=== PATIENT | female | born 1990 | race Hispanic/Latino ===

== ENCOUNTER 2019-07-21 13:13 | Emergency (ER) | payer OTHER ==
--- NOTE | 2019-07-21 13:18 | Event Note ---
ED Screening Note ED Screening Note: 29 yo with hx of MS, 9 weeks , vaginal bleeding This initial assessment/diagnostic orders/clinical plan/treatment(s) is/are subject to change based on patients health status, clinical progression and re- assessment by fellow clinical providers in the ED. Further treatment and workup at subsequent clinical providers discretion. Patient/guardian urged not to elope from the ED as their condition may be serious if not clinically assessed and managed. Initial orders include: labs US
[2019-07-21 14:44] LABS: BUN/Creatinine Ratio 10; Blood Urea Nitrogen 5 mg/dL (7-17); Calcium 8.8 mg/dL (8.4-10.2); Hemolysis Index 5
[2019-07-21 14:46] LABS: Basophils # (Auto) 0.1 K/mm3 (0.0-0.1); Eosinophils # (Auto) 0.1 K/mm3 (0.0-0.4); Eosinophils % (Auto) 1.2 % (0.0-4.3); Monocytes # (Auto) 0.4 K/mm3 (0.0-0.8); Monocytes % (Auto) 3.7 % (0.0-7.3)
--- NOTE | 2019-07-21 14:54 | Ultrasound Report ---
OB Ultrasound HISTORY: vaginal bleeding. TECHNIQUE: Grayscale and color imaging performed. COMPARISON: No recent comparison exam is available. FINDINGS: Transabdominal and endovaginal imaging was performed. There is a single intrauterine gestation with crown-rump length of 1.1 cm corresponding with an EGA o f 7 weeks and 2 days. Mean sac diameter is 2.4 cm corresponding with an EGA of 7 weeks and 3 days. Ov erall EGA is 7 weeks and 3 days by ultrasound with estimated delivery date of 03/05/2020. This closel y corresponds with the clinical gestational age of 7 weeks and 4 days. There is a pole and a yo lk sac with heart rate of 147 bpm. The gestational sac is in the uterine fundal region. No free fluid identified. Left ovary is not visualized. The right ovary is normal in size and contains a likely fu nctional cyst measuring 1.5 cm. IMPRESSION: 1. Single viable intrauterine gestation as above. 2. Likely functional cyst in the right ovary. 3. Left ovary not visualized. Signer Name: Hakeem Hauser MD Signed: 07/21/2019 2:49 PM Workstation Name: [id number]
[2019-07-21 15:09] LABS: Hematocrit 36.4 % (30.3-42.9); Hemoglobin 12.2 gm/dl (10.1-14.3); Mean Corpuscular HGB Conc 34 % (30-34); Mean Corpuscular Volume 75 fl (79-97); Platelet Count 231 K/mm3 (140-440); Red Blood Count 4.82 M/mm3 (3.65-5.03); Red Cell Distribution Width 16.3 % (13.2-15.2)
[2019-07-21 16:29] LABS: Basophils % (Manual) 0 % (0.0-1.8); Total Cells Counted 100
[2019-07-21 16:30] LABS: Anisocytosis 1+; Hypochromasia 1+
--- NOTE | 2019-07-21 16:35 | Emergency Department Report ---
ED Female HPI - General Chief complaint: Vaginal Bleeding Stated complaint: 7WKS PREG AND BLEEDING Time Seen by Provider: 07/21/19 14:03 Source: patient Mode of arrival: Ambulatory Limitations: No Limitations - History of Present Illness Initial comments: 39-year-old obese female presents emerged department complaining of having some mild of vaginal bleeding which began after intercourse about 2 weeks ago. She states that the bleeding stopped about 1 week ago and then restarted on yesterday and is relatively painless but she wanted to evaluate for the health of her MD Complaint: vaginal bleeding -: Gradual Location: suprapubic Radiation: non-radiating Severity: mild Improves with: none Worsens with: intercourse Are you Now?: Yes Associated Symptoms: vaginal bleeding - Related Data Sexually active: Yes Home Medications Medication Instructions Recorded Confirmed Last Taken Valacyclovir HCl [Valtrex] 500 tab PO DAILY 09/21/14 09/30/14 09/21/14 09:00 1 Previous Rx's Medication Instructions Recorded Last Taken Type Pnv 21/Iron Ps,Heme Ppep/Folic 1 each PO QDAY #30 tablet 02/19/14 09/21/14 09:00 Rx [Prefera Ob Tablet] 1 oxyCODONE /ACETAMINOPHEN [Percocet 1 tab PO Q4HR PRN #30 tablet 10/02/14 Unknown Rx 5/325] Docusate Sodium [Colace] 100 mg PO BID PRN #60 capsule 10/03/14 Unknown Rx Ferrous Sulfate [Feosol 325 MG tab] 325 mg PO BID #60 tablet 10/03/14 Unknown Rx Cyclobenzaprine [Flexeril 10 MG 10 mg PO Q8H PRN #21 tablet 12/31/14 Unknown Rx TAB] Diclofenac Dr [Gilbert Mckay] 75 mg PO Q12H #20 tablet 12/31/14 Unknown Rx Acetaminophen/Codeine [Tylenol 1 tab PO Q6H PRN #20 tab 02/24/15 Unknown Rx /Codeine # 3 tab] Clindamycin [Clindamycin CAP] 300 mg PO Q6H #40 capsule 02/24/15 Unknown Rx Ibuprofen [Motrin 800 MG tab] 800 mg PO TID PRN #30 tablet 02/24/15 Unknown Rx Allergies Allergy/AdvReac Type Severity Reaction Status Date / Time No Known Allergies Allergy Verified 07/21/19 13:15 ED Review of Systems ROS: Stated complaint: 7WKS PREG AND BLEEDING Other details as noted in HPI Comment: All other systems reviewed and negative ED Past Medical Hx - Past Medical History Hx Hypertension: No Hx Congestive Heart Failure: No Hx Diabetes: No Hx Deep Vein Thrombosis: No Hx Renal Disease: No Hx Sickle Cell Disease: No Hx Seizures: No Hx Asthma: No Hx COPD: No Hx HIV: No Additional medical history: Vaginal delivery - Surgical History Additional Surgical History: c -sect - Social History Smoking Status: Current Every Day Smoker Substance Use Type: None - Medications Home Medications: Home Medications Medication Instructions Recorded Confirmed Last Taken Type Pnv 21/Iron Ps,Heme Ppep/Folic 1 each PO QDAY #30 tablet 02/19/14 09/30/14 09/21/14 09:00 Rx [Prefera Ob Tablet] 1 Valacyclovir HCl [Valtrex] 500 tab PO DAILY 09/21/14 09/30/14 09/21/14 09:00 History 1 oxyCODONE /ACETAMINOPHEN [Percocet 1 tab PO Q4HR PRN #30 tablet 10/02/14 Unknown Rx 5/325] Docusate Sodium [Colace] 100 mg PO BID PRN #60 capsule 10/03/14 Unknown Rx Ferrous Sulfate [Feosol 325 MG tab] 325 mg PO BID #60 tablet 10/03/14 Unknown Rx Cyclobenzaprine [Flexeril 10 MG 10 mg PO Q8H PRN #21 tablet 12/31/14 Unknown Rx TAB] Diclofenac Dr [Voltaren Dr] 75 mg PO Q12H #20 tablet 12/31/14 Unknown Rx Acetaminophen/Codeine [Tylenol 1 tab PO Q6H PRN #20 tab 02/24/15 Unknown Rx /Codeine # 3 tab] Clindamycin [Clindamycin CAP] 300 mg PO Q6H #40 capsule 02/24/15 Unknown Rx Ibuprofen [Motrin 800 MG tab] 800 mg PO TID PRN #30 tablet 02/24/15 Unknown Rx ED Physical Exam - General Limitations: No Limitations General appearance: alert, in no apparent distress - Head Head exam: Present: atraumatic, normocephalic - Eye Eye exam: Present: normal appearance, PERRL, EOMI Pupils: Present: normal accommodation - ENT ENT exam: Present: mucous membranes moist - Neck Neck exam: Present: normal inspection - Respiratory Respiratory exam: Present: normal lung sounds bilaterally. Absent: respiratory distress - Cardiovascular Cardiovascular Exam: Present: regular rate, normal rhythm. Absent: systolic murmur, diastolic murmur, rubs, gallop - GI/Abdominal GI/Abdominal exam: Present: soft, normal bowel sounds. Absent: tenderness, guarding, rebound - Extremities Exam Extremities exam: Present: normal inspection, normal capillary refill - Back Exam Back exam: Present: normal inspection. Absent: CVA tenderness (R), CVA tenderness (L) - Neurological Exam Neurological exam: Present: alert, oriented X3, CN II-XII intact - Psychiatric Psychiatric exam: Present: normal affect, normal mood. Absent: anxious, flat affect - Skin Skin exam: Present: warm, dry, intact, normal color. Absent: rash, diaphoretic, erythema, urticaria ED Course Vital Signs 07/21/19 13:18 Temperature 98.1 F Pulse Rate 77 Respiratory 18 Rate Blood Pressure 131/69 O2 Sat by Pulse 100 Oximetry ED Medical Decision Making - Lab Data Result diagrams: 07/21/19 14:17 07/21/19 14:17 - Radiology Data Radiology results: report reviewed Referring Physician:BRITTANY RODRIGUEZPatient Name:ANURAG FELICIANOOSPatient ID:[id number] of :[id number]:FemaleAccession:[id number] Date:[id number] Status:Finalized Findings [facility] [address] [place] [address] Ultrasound Report Signed Patient: ANURAG IBARRA MR#: [id number] : 1990 Acct:[id number] Age/Sex: 29 / F ADM Date: 07/21/19 Loc: ED Attending Dr: Ordering Physician: Brittany Wheat MD Date of Service: 07/21/19 Procedure(s): US OB <= 14 weeks fetus Accession Number(s): [id number] cc: Brittany Wheat MD OB Ultrasound HISTORY: vaginal bleeding. TECHNIQUE: Grayscale and color imaging performed. COMPARISON: No recent comparison exam is available. FINDINGS: Transabdominal and endovaginal imaging was performed. There is a single intrauterine gestation with crown-rump length of 1.1 cm corresponding with an EGA of 7 weeks and 2 days. Mean sac diameter is 2.4 cm corresponding with an EGA of 7 weeks and 3 days. Overall EGA is 7 weeks and 3 days by ultrasound with estimated delivery date of 03/05/2020. This closely corresponds with the clinical gestational age of 7 weeks and 4 days. There is a pole and a yolk sac with heart rate of 147 bpm. The gestational sac is in the uterine fundal region. No free fluid identified. Left ovary is not visualized. The right ovary is normal in size and contains a likely functional cyst measuring 1.5 cm. IMPRESSION: 1. Single viable intrauterine gestation as above. 2. Likely functional cyst in the right ovary. 3. Left ovary not visualized. Signer Name: Hakeem Hauser MD Signed: 07/21/2019 2:49 PM Workstation Name: [id number] Transcribed By: BETTY Dictated By: Hakeem Hauser MD Electronically Authenticated By: Hakeem Hauser MD Signed Date/Time: 07/21/19 1449 DD/ 45 TD/TT: Critical care attestation.: If time is entered above; I have spent that time in minutes in the direct care of this critically ill patient, excluding procedure time. ED Disposition Clinical Impression: Threatened miscarriage Disposition: DC-01 TO HOME OR SELFCARE Is pt being admited?: No Does the pt Need Aspirin: No Condition: Stable Instructions: Threatened Miscarriage (ED) Referrals: [facility] [Primary Care Provider] - 3-5 Days [facility] [Provider Group] - 3-5 Days
[2019-07-21 17:30] VITALS: BP 139/75
== END 2019-07-21 17:14 | disposition home or self-care (01) ==
LOC: ED 13:13
DX: O20.0 Threatened abortion (principal); Z3A.01 Less than 8 weeks gestation of pregnancy; F17.200 Nicotine dependence, unspecified, uncomplicated
CPT/HCPCS: 36415; 76801; 76817; 80048; 84702; 85007; 85025; 86900; 86901; 99284

== ENCOUNTER 2020-01-15 09:52 | Outpatient (CLI) | payer OTHER ==
[2020-01-15] MEDS ORDERED: LACTATED RINGERS 1,000 ML IV ONE (10:25)
[2020-01-15 11:28] LABS: Bilirubin,Urine SM (Negative); Blood,Urine NEG (Negative); Color,Urine Amber (Yellow); Mucus,Urine 3+ /HPF
[2020-01-15 11:33] LABS: Ictotest,Urine Negative (Negative)
[2020-01-15] MEDS ORDERED: LACTATED RINGERS 1,000 ML IV SCH (12:00)
[2020-01-15] MEDS ORDERED: BUTALB/ACETAMINOPHEN/CAFFEINE TAB PO ONE (12:08)
[2020-01-15] MEDS ORDERED: TERBUTALINE 1 MG/1 ML INJ IVP ONE (12:08)
[2020-01-15 12:37] VITALS: BP 123/67
== END 2020-01-15 14:00 | disposition home or self-care (01) ==
LOC: TRG 09:52 → APU 09:53 → TRG 14:00
PROVIDERS: ATTEND Obstetrics & Gynecology
DX: O26.893 Other specified pregnancy related conditions, third trimester (principal); R25.2 Cramp and spasm; O47.03 False labor before 37 completed weeks of gestation, third trimester; O24.419 Gestational diabetes mellitus in pregnancy, unspecified control; O99.343 Other mental disorders complicating pregnancy, third trimester; F41.9 Anxiety disorder, unspecified; F32.9 Major depressive disorder, single episode, unspecified; O99.333 Smoking (tobacco) complicating pregnancy, third trimester; F17.200 Nicotine dependence, unspecified, uncomplicated; Z3A.33 33 weeks gestation of pregnancy
CPT/HCPCS: 59025; 81001; 96361; 96374; J3105; J7120; 96360; 96372

== ENCOUNTER 2020-02-04 23:13 | Outpatient (CLI) | payer OTHER ==
[2020-02-04 23:33] VITALS: BP 127/85
== END 2020-02-04 23:59 | disposition home or self-care (01) ==
LOC: TRG 23:13 → APU 23:14 → TRG 23:59
PROVIDERS: ATTEND Obstetrics & Gynecology
DX: O42.913 Preterm premature rupture of membranes, unspecified as to length of time between rupture and onset of labor, third trimester (principal); Z3A.35 35 weeks gestation of pregnancy
CPT/HCPCS: 59025

== ENCOUNTER 2020-02-06 21:06 | Outpatient (CLI) | payer OTHER ==
[2020-02-06 21:55] VITALS: BP 125/80
[2020-02-06] MEDS ORDERED: ONDANSETRON 4 MG/2 ML INJ IV ONE (22:01)
[2020-02-06] MEDS ORDERED: LACTATED RINGERS 1,000 ML ONE (22:34)
[2020-02-06] MEDS ORDERED: LACTATED RINGERS 1,000 ML IV ONE (22:35)
[2020-02-06 23:11] LABS: Basophils % (Auto) 0.3 % (0.0-1.8); Eosinophils % (Auto) 0.2 % (0.0-4.3); Hematocrit 33.1 % (30.3-42.9); Hemoglobin 10.8 gm/dl (10.1-14.3); Lymphocytes # (Auto) 2.6 K/mm3 (1.2-5.4); Lymphocytes % (Auto) 16.6 % (13.4-35.0); Mean Corpuscular HGB Conc 33 % (30-34); Mean Corpuscular Volume 77 fl (79-97); Monocytes # (Auto) 0.6 K/mm3 (0.0-0.8); Monocytes % (Auto) 3.9 % (0.0-7.3); Platelet Count 254 K/mm3 (140-440); Red Blood Count 4.28 M/mm3 (3.65-5.03); Red Cell Distribution Width 15.6 % (13.2-15.2)
[2020-02-06 23:17] LABS: Bilirubin,Urine SM (Negative); Blood,Urine NEG (Negative); Color,Urine Amber (Yellow); Hyaline Casts,Urine 1 /LPF; Mucus,Urine 3+ /HPF
[2020-02-06 23:25] LABS: Ictotest,Urine Negative (Negative)
[2020-02-06 23:32] LABS: Albumin 3.2 g/dL (3.9-5); Blood Urea Nitrogen 4 mg/dL (7-17); Calcium 8.9 mg/dL (8.4-10.2); Hemolysis Index 2
[2020-02-06 23:36] LABS: Alanine Aminotransferase < 5 units/L (7-56); BUN/Creatinine Ratio 10
[2020-02-07] MEDS ORDERED: ACETAMINOPHEN 325 MG TAB PO ONE (00:12)
== END 2020-02-07 01:01 | disposition home or self-care (01) ==
LOC: TRG 21:06 → APU 21:11 → TRG 02-07 01:01
PROVIDERS: ATTEND Obstetrics & Gynecology
DX: O26.893 Other specified pregnancy related conditions, third trimester (principal); R10.9 Unspecified abdominal pain; R51 Headache; R11.0 Nausea; O24.419 Gestational diabetes mellitus in pregnancy, unspecified control; O99.343 Other mental disorders complicating pregnancy, third trimester; F32.9 Major depressive disorder, single episode, unspecified; F41.9 Anxiety disorder, unspecified; O99.333 Smoking (tobacco) complicating pregnancy, third trimester; F17.200 Nicotine dependence, unspecified, uncomplicated; Z3A.36 36 weeks gestation of pregnancy
CPT/HCPCS: 36415; 59025; 80053; 81001; 82150; 82962; 83690; 85025; 96361; J7120